=== PATIENT | male | born 1960 | race Hispanic/Latino ===

== ENCOUNTER → 2018-05-05 | Outpatient (CLI) | payer BC | END | disposition home or self-care (01) | LOC: SHCH 13:29 | PROVIDERS: ATTEND Internal Medicine Cardiovascular Disease | DX: I20.9 Angina pectoris, unspecified (principal) | CPT/HCPCS: 93306 ==

== ENCOUNTER 2019-10-17 22:22 | Inpatient (IN) | payer MEDICARE ==
[~2019-10-17] VITALS: Ht 172.7 cm; Wt 96.0 kg
[2019-10-17] MEDS ORDERED: ONDANSETRON HCL 4 MG/2 ML VIAL ONE (22:57)
[2019-10-17] MEDS ORDERED: KETOROLAC TROMETHAMINE 30MG/ML ONE (22:58)
[2019-10-17 22:59] LABS: BASOPHILS % (AUTO) 0.3 % (0.0-5.0); EOSINOPHILS % (AUTO) 0.1 % (0.0-8.0); HEMATOCRIT 54.5 % (42-54); LYMPHOCYTES % (AUTO) 2.8 % (21.0-51.0); MEAN CORPUSCULAR HEMOGLOBIN 28.5 pg (27.0-33.0); MEAN CORPUSCULAR HGB CONC 33.2 g/dL (32.0-36.0); MEAN CORPUSCULAR VOLUME 85.8 fL (79-99); MONOCYTES % (AUTO) 5.3 % (3.0-13.0); NEUTROPHILS % (AUTO) 91.1 % (40.0-77.0); PLATELET COUNT (AUTO) 194 K/uL (130-400); RED BLOOD CELL COUNT(AUTO) 6.35 MIL/uL (4.50-6.20); RED CELL DISTRIBUTION WIDTH 12.8 % (11.0-15.5); WHITE BLOOD COUNT (AUTO) 14.4 K/uL (4.8-10.8)
[2019-10-17 23:05] LABS: APPEARANCE,URINE Clear (CLEAR); BILIRUBIN,URINE Moderate (NEGATIVE); COLOR,URINE Dark Yellow (YELLOW); GLUCOSE, URINE (UA) >=1000 mg/dL (NEGATIVE); KETONES,URINE >=80 mg/dL (NEGATIVE); LEUKOCYTE ESTERASE ,URINE Negative (NEGATIVE); NITRATE,URINE Negative (NEGATIVE); OCCULT BLOOD,URINE Negative (NEGATIVE); PROTEIN,URINE Trace mg/dL (NEGATIVE); UROBILINOGEN,URINE >=8.0 mg/dL (0.2-1.0)
[2019-10-17 23:11] LABS: CREATININE 1.2 mg/dL (0.5-1.5)
[2019-10-17 23:15] LABS: TOTAL PROTEIN, SERUM 7.9 g/dL (6.0-8.3)
[2019-10-17 23:18] LABS: BACTERIA,URINE Few /HPF (None Seen); MUCUS,URINE Moderate LPF (None Seen); RBC,URINE 0-1 /HPF (0-1); RENAL EPITHELIAL CELLS,URINE Moderate /HPF (None Seen); SQUAMOUS EPITHELIAL CELL,UR Moderate /HPF (0-2); WBC,URINE 0-1 /HPF (0-1)
[2019-10-17 23:37] LABS: ALBUMIN 3.1 g/dL (3.5-5.0)
[2019-10-17] MEDS ORDERED: ZOSYN 3.375GM+NS 50ML 50 ML IV ONE (23:37)
[2019-10-17] MEDS ORDERED: MORPHINE SULFATE 4 MG/1ML SYG ONE (23:38)
[2019-10-18] VITALS (19 sets, daily range): BP systolic 87–123; BP diastolic 41–79
[2019-10-18] MEDS ORDERED: DEXTROSE 50%-WATER 50 ML DISP.SYRIN IV PRN (01:00)
[2019-10-18] MEDS ORDERED: GLUCAGON 1MG KIT 1 MG ML IM PRN (01:00)
[2019-10-18] MEDS ORDERED: LISI40TA4 PO (01:13)
[2019-10-18] MEDS ORDERED: DULA1.5P SQ (01:13)
[2019-10-18] MEDS ORDERED: TAMS-1 PO (01:13)
[2019-10-18] MEDS ORDERED: CANA300T PO (01:13)
[2019-10-18] MEDS ORDERED: ATOR20TA65 PO (01:13)
[2019-10-18] MEDS ORDERED: INSU100I13 SQ ×2 (01:13)
[2019-10-18 06:08] LABS: HEMATOCRIT 47.8 % (42-54); MEAN CORPUSCULAR HEMOGLOBIN 29.2 pg (27.0-33.0); MEAN CORPUSCULAR HGB CONC 33.3 g/dL (32.0-36.0); MEAN CORPUSCULAR VOLUME 87.7 fL (79-99); RED BLOOD CELL COUNT(AUTO) 5.45 MIL/uL (4.50-6.20); RED CELL DISTRIBUTION WIDTH 12.9 % (11.0-15.5); WHITE BLOOD COUNT (AUTO) 17.6 K/uL (4.8-10.8)
[2019-10-18 06:26] LABS: ALBUMIN 2.7 g/dL (3.5-5.0); BILIRUBIN,TOTAL 8.7 mg/dL (0.2-1.0); CREATININE 1.7 mg/dL (0.5-1.5); POTASSIUM 4.2 mmol/L (3.5-5.1); TOTAL PROTEIN, SERUM 6.7 g/dL (6.0-8.3)
[2019-10-18] MEDS: INSULIN R PO SS2 SQ SCH ×4 (07:30→21:00)
[2019-10-18] MEDS: MEPERIDINE-PF 50 MG/ML SYG IVP PRN (07:31)
[2019-10-18] MEDS: ONDANSETRON HCL 4 MG/2 ML VIAL IVP PRN ×2 (07:31→15:15)
[2019-10-18] MEDS: PANTOPRAZOLE 40 MG/VIAL IVP SCH (08:48)
--- NOTE | 2019-10-18 08:54 | NUR ---
CONSULT DR. DE LOS SANTOS CONSULTED FOR DX OF OBSTRUCTED JAUNDICE. IMAGING RESULTS REPORTED. WILL VIEW RESULTS AND CALL BACK WITH ANY NEW ORDERS.
[2019-10-18] MEDS ORDERED: LORAZEPAM 2 MG/ML 1 ML VIAL IVP SCH (09:30)
--- NOTE | 2019-10-18 13:05 | NUR ---
INITIAL CALL TO NUMBER LISTED ON FACE SHEET, BELONGS TO SPOUSE, MELANIA. STATES PT IS DISABLED BUT HAS BEEN INDEPENDENT, USES A CANE AT TIMES, DOES NOT DRIVE, HOME SAFE & ACCESSIBLE SPOUSE TAKES TO APPOINTMENTS AT DR. GLASER, FOLLOWS UP FREQUENTLY. DC PLAN IS HOME Addendum: 10/18/19 at 1443 by CHANDA BUTLER RN CM Amended: Links added.
[2019-10-18] MEDS ORDERED: IOHEXOL-350 50ML VIAL IV ONE (13:47)
[2019-10-18] MEDS ORDERED: MIDAZOLAM HCL 1 MG/ML 2ML VIAL ONE ×2 (14:25→14:41)
[2019-10-18] MEDS ORDERED: FENTANYL CITRATE PF 50 MCG/1 ML 2ML VIAL ONE ×2 (14:25→14:41)
[2019-10-18] MEDS ORDERED: PROPOFOL 10 MG/ML 20ML VIAL IV ONE (14:25)
[2019-10-18] MEDS ORDERED: LIDOCAINE HCL 1% 20 ML VIAL ONE (14:26)
[2019-10-18] MEDS ORDERED: INDOMETHACIN 50 MG SUPP.RECT RC SCH (15:00)
--- NOTE | 2019-10-18 15:49 | NUR ---
REPORT RECEIVED FROM ESMER TOLEDO (PACU). PATIENT S/P ERCP UNDER GENERAL ANESTHESIA. ONE STONE, SLUDGE AND PUS FOUND IN THE CBD. DR. DE LOS SANTOS RECOMMENDING SURGERY FOR CHOLECYSTECTOMY. PATIENT STABLE AT THIS TIME.
[2019-10-18] MEDS ORDERED: VANCOMYCIN PROTOCOL PER PHARMACY IV SCH (17:00)
--- NOTE | 2019-10-18 17:35 | NUR ---
DR. DE LOS SANTOS MADE AWARE OF NO SURGEON DIRECTOR CLINICAL RESEARCH FOR TODAY OR TOMORROW. NEW ORDERS FOR HIDA SCAN TODAY AND CALL WITH RESULTS.
[2019-10-18] MEDS ORDERED: COMPOUND IV REFRIGERATED 1 EACH IVSOLN MISC PRN (17:45)
--- NOTE | 2019-10-18 17:45 | NUR ---
DR. GLASER MADE AWARE OF ERCP RESULTS. ORDERED TO START VANCOMYCIN PROTOCOL.
[2019-10-18] MEDS: VANCOMYCIN 1.5 GM in SODIUM CHLORIDE 0.9% 250 ML IV SCH (18:50)
--- NOTE | 2019-10-18 22:12 | NUR ---
HIDA SCAN RESULTS PAGED DR. DE LOS SANTOS'S OFFICE AT THIS TIME, REGARDING HIDA SCAN RESULTS, PENDING CALL BACK
--- NOTE | 2019-10-18 22:40 | NUR ---
DR. DE LOS SANTOS MADE AWARE OF HIDA SCAN RESULTS.
[2019-10-19] VITALS (7 sets, daily range): BP systolic 98–143; BP diastolic 55–83
[2019-10-19] MEDS: SODIUM CHLORIDE 0.9% 1000ML 1,000 ML IV SCH ×2 (00:36→12:18)
--- NOTE | 2019-10-19 02:34 | NUR ---
DR. FILIBERTO WALTER STATED HE WANTS TO BE MADE AWARE OF LAB RESULTS.
[2019-10-19 05:53] LABS: BASOPHILS % (AUTO) 0.4 % (0.0-5.0); LYMPHOCYTES % (AUTO) 10.8 % (21.0-51.0); MEAN CORPUSCULAR HEMOGLOBIN 28.5 pg (27.0-33.0); MEAN CORPUSCULAR HGB CONC 32.4 g/dL (32.0-36.0); MEAN CORPUSCULAR VOLUME 87.7 fL (79-99); MONOCYTES % (AUTO) 9.3 % (3.0-13.0); NEUTROPHILS % (AUTO) 76.3 % (40.0-77.0); PLATELET COUNT (AUTO) 171 K/uL (130-400); RED BLOOD CELL COUNT(AUTO) 5.13 MIL/uL (4.50-6.20); RED CELL DISTRIBUTION WIDTH 13.1 % (11.0-15.5); WHITE BLOOD COUNT (AUTO) 8.4 K/uL (4.8-10.8)
[2019-10-19 06:19] LABS: ALBUMIN 2.3 g/dL (3.5-5.0); CREATININE 1.3 mg/dL (0.5-1.5); TOTAL PROTEIN, SERUM 6.1 g/dL (6.0-8.3)
[2019-10-19] MEDS: INSULIN R PO SS2 SQ SCH ×4 (07:30→21:00)
--- NOTE | 2019-10-19 07:56 | NUR ---
NOTIFIED DR. DE LOS SANTOS REGARDING AM LABS. STATED TO REPEAT LABS IN AM AND START FULL LIQUID DIET FOR LUNCH.
[2019-10-19] MEDS: PANTOPRAZOLE 40 MG/VIAL IVP SCH (09:10)
--- NOTE | 2019-10-19 15:51 | NUR ---
NUTRITION EDUCATION Pt Refusal of Diabetes Nutrition education. Pt denies need for education secondary to previous attendance of Diabetes classes. MITESH offered reference materials and Pt declined. MITESH encouraged Pt to notify as questions arise. Addendum: 10/19/19 at [address] Amended: Links added.
--- NOTE | 2019-10-19 16:03 | NUR ---
RD NOTIFICATION Pt admitted with Obstructed Jaundice, Abdominal pain. Upon visit, Pt reports he is hungry but still having abdominal pain and pending possible procedure. Pt with Clear Liquid Diet order in place. Recommend advance diet as tolerated to Heart healthy, 6 small meals, when medically feasible. Recommend 60mL promod BID. RD to continue to monitor. Please notify as additional nutrition concerns arise. Thank you. Addendum: 10/19/19 at [address] Amended: Links added.
[2019-10-19] MEDS: VANCOMYCIN 1.5 GM in SODIUM CHLORIDE 0.9% 250 ML IV SCH (18:00)
[2019-10-19] MEDS: MEPERIDINE-PF 50 MG/ML SYG IVP PRN (20:15)
[2019-10-19] MEDS: ONDANSETRON HCL 4 MG/2 ML VIAL IVP PRN (20:15)
--- NOTE | 2019-10-19 20:30 | NUR ---
HIGH WIRE ARTIST PAGED, DR GLASER AWARE PT STATES HAS NOT HAD A BM IN 7 DAYS CPOE ORDERS GIVEN
[2019-10-19] MEDS ORDERED: POTASSIUM CHLORIDE 20MEQ/100ML 100 ML IV PRN (21:15)
[2019-10-19] MEDS ORDERED: LIDOCAINE HCL-MPF 1% 2ML VIAL IJ PRN (21:15)
[2019-10-19] MEDS: ZOLPIDEM TARTRATE 5 MG TAB PO PRN (22:46)
[2019-10-20] MEDS: SODIUM CHLORIDE 0.9% 1000ML 1,000 ML IV SCH ×3 (00:04→23:36)
[2019-10-20] MEDS: LACTULOSE 20 GM/30 ML UDCUP PO PRN ×2 (03:19→11:38)
[2019-10-20 03:50] VITALS: BP 143/78
[2019-10-20 04:38] LABS: BASOPHILS % (AUTO) 0.8 % (0.0-5.0); EOSINOPHILS % (AUTO) 3.9 % (0.0-8.0); HEMATOCRIT 47.1 % (42-54); LYMPHOCYTES % (AUTO) 13.3 % (21.0-51.0); MEAN CORPUSCULAR HEMOGLOBIN 27.8 pg (27.0-33.0); MEAN CORPUSCULAR HGB CONC 31.6 g/dL (32.0-36.0); MEAN CORPUSCULAR VOLUME 87.9 fL (79-99); MONOCYTES % (AUTO) 10.6 % (3.0-13.0); PLATELET COUNT (AUTO) 198 K/uL (130-400); RED BLOOD CELL COUNT(AUTO) 5.36 MIL/uL (4.50-6.20); RED CELL DISTRIBUTION WIDTH 13.1 % (11.0-15.5); WHITE BLOOD COUNT (AUTO) 7.1 K/uL (4.8-10.8)
[2019-10-20 04:49] LABS: ALBUMIN 2.3 g/dL (3.5-5.0); BILIRUBIN,TOTAL 6.1 mg/dL (0.2-1.0); CREATININE 1.2 mg/dL (0.5-1.5); POTASSIUM 3.8 mmol/L (3.5-5.1); TOTAL PROTEIN, SERUM 6.4 g/dL (6.0-8.3)
[2019-10-20] MEDS: INSULIN R PO SS2 SQ SCH ×4 (07:22→21:00)
[2019-10-20 08:05] VITALS: BP 136/78
[2019-10-20] MEDS: PANTOPRAZOLE 40 MG/VIAL IVP SCH (08:23)
[2019-10-20] MEDS: MEPERIDINE-PF 50 MG/ML SYG IVP PRN ×3 (08:26→21:19)
--- NOTE | 2019-10-20 09:37 | NUR ---
DR JAYESH BAIG REGARDING CONSULT. STATED HE WILL SEE PATIENT
[2019-10-20 11:42] VITALS: BP 153/80
[2019-10-20] MEDS: ZOSYN 3.375GM+NS 50ML 50 ML IV SCH ×2 (13:11→21:17)
[2019-10-20 16:54] VITALS: BP 162/61
--- NOTE | 2019-10-20 17:00 | NUR ---
Leila ANNA PA TO SEE PT EXPRESSED TO PT THAT HE WOULD DISCUSS SITUATION WITH DR MCCONNELL AND WOULD LIKE TO MONITOR PATIENT MORE. IF PT SHOULD HAVE LAP CHOLE0 IT WOULD LIKELY BE ON FRIDAY BUT NO ORDERS YET. PT VERBALIZED UNDERSTANDING. Leila MARTINES SUGGESTED PT CAN EAT REGULAR DIET NOW. THIS NURSE INFORMED PA THAT DR DE LOS SANTOS STATED TO KEEP PT ON FULL LIQUID. PT BECAME UPSET STATING "WHY IS A DOCTOR WHO HASNT SEEN ME TELLING ME WHAT I CAN OR CANT DO? FORGET IT, I DONT WANT . I DONT WANT YOUR FOOD" THIS NURSE AND PA ATTEMPT TO CALM PATIENT DOWN BUT HE BECAME INCREASINGLY UPSET.
--- NOTE | 2019-10-20 17:15 | NUR ---
DINNER TRAY DIET CHANGED PER Leila ANNA ORDER FOR CC DIET-TRAY RECEIVED. THIS NURSE PERSONALLY ATTEMPTED TO DELIVER TRAY TO PATIENT TO WHICH HE YELLED "I ALREADY TOLD YOU I DONT WANT THAT SHIT. GET IT OUT OF HERE. I TOLD YOU TWICE." THIS NRUSE REMOVED TRAY.
--- NOTE | 2019-10-20 17:30 | NUR ---
WALLET PT CLAIMING WALLET HAS BEEN STOLEN. STATED HE JUST REMEMBERED THAT HE CANT FIND HIS WALLET AFTER SHOWER THIS AM. PT IS ACCUSING ZIGZAGGER/ENVIRONMENTAL AIDE OF STEALING WALLET STATING "I DONT KNOW IF IT WAS NOÉ THE GIRL BECAUSE SHE PROBABLY NEEDED MONEY, ALL SHE HAD TO DO WAS TAKE THE MONEY NOT THE WALLET". DELMY LYMAN AND SECURITY NOTIFIED. THIS NURSE ATTEMPTED TO LOOK IN ROOM WITH BSS SOLUTION ARCHITECT PRSENT TO WHICH PT BEGAN GETTING AGITATED STATING "SEE THIS IS WHAT PISSES ME OFF. WHEN PEOPLE DONT BELIEVE ME AND KEEP ASKING QUESTIONS". THIS NURSE EXITED ROOM.
--- NOTE | 2019-10-20 17:30 | NUR ---
RECEIVED A CLAIM FROM PATIENT ABOUT A MISSING WALLET. PATIENT CLAIMED THAT HIS WALLET WAS ON THE BED NEXT TO HIS PHONE, THEN HE TOOK A SHOWER (AROUND [phone]). NOÉ GOODEN CHANGE THE LINEN. PATIENT REPORTED MISSING WALLET AT 1730. I CALLED HOUSE KEEPING AND THEY INFORMED ME THAT THE [employer] PICKED UP ALL DIRTY LINEN FOR TODAY. HOUSE KEEPING SEND AN EMAIL TO THE [employer] WITH THE WALLET DESCRIPTION SO THEY CALL LOOK FOR IT. I INFORMED PT OF THIS HOWEVER, PT WAS VERY DEMANDING AND ABUSIVE TOWARDS ME AND NOÉ GOODEN. I TOLD HIM THAT WE WERE TRYING TO HELP HIM BUT HE CONTINUED USING ABUSIVE LANGUAGE SO WE DECIDED TO EXIT THE ROOM.
[2019-10-20 20:31] VITALS: BP 138/80
[2019-10-20] MEDS: ZOLPIDEM TARTRATE 5 MG TAB PO PRN (21:18)
[2019-10-20 23:41] VITALS: BP 147/79
[2019-10-21 03:38] VITALS: BP 126/72
[2019-10-21 03:52] LABS: HEMATOCRIT 44.6 % (42-54); MEAN CORPUSCULAR HEMOGLOBIN 28.6 pg (27.0-33.0); MEAN CORPUSCULAR HGB CONC 32.7 g/dL (32.0-36.0); MEAN CORPUSCULAR VOLUME 87.3 fL (79-99); RED BLOOD CELL COUNT(AUTO) 5.11 MIL/uL (4.50-6.20); RED CELL DISTRIBUTION WIDTH 12.9 % (11.0-15.5); WHITE BLOOD COUNT (AUTO) 6.7 K/uL (4.8-10.8)
[2019-10-21 04:16] LABS: ALBUMIN 2.2 g/dL (3.5-5.0); BILIRUBIN,DIRECT 3.9 mg/dL (0.0-0.3); BILIRUBIN,TOTAL 4.5 mg/dL (0.2-1.0); POTASSIUM 3.8 mmol/L (3.5-5.1)
[2019-10-21] MEDS: ZOSYN 3.375GM+NS 50ML 50 ML IV SCH ×3 (05:14→21:10)
[2019-10-21] MEDS: INSULIN R PO SS2 SQ SCH ×4 (06:37→21:00)
[2019-10-21 08:04] VITALS: BP 144/91
--- NOTE | 2019-10-21 08:30 | NUR ---
PT UPSET, ANGRY OF HIS MISSING WALLET PT STATES WE ARE NOT DOING NOTHING ABOUT IT AND THAT IF HE DOES NOT GET HIS WALLET HE WILL CALL POLICE, PATIENT WAS TOLD THAT WE WILL FOLLOW UP WITH SECURITY. CHARGE NURSE JACOB AND SECURITY LANCE AWARE OF INCIDENT.
[2019-10-21] MEDS: PANTOPRAZOLE 40 MG/VIAL IVP SCH (09:43)
[2019-10-21 11:05] VITALS: BP 161/80
[2019-10-21] MEDS: SODIUM CHLORIDE 0.9% 1000ML 1,000 ML IV SCH ×2 (11:22→21:11)
--- NOTE | 2019-10-21 12:45 | NUR ---
CONRAD ANNA AT BEDSIDE CONRAD ANNA SPOKE WITH PATIENT THAT IT WAS OKAY FOR HIM TO ORDER FOOD BUT NOT TO EAT. CONRAD MR ANNA WILL ASK DR. MCCONNELL ABOUT THE POSSIBILITY OF SURGERY TODAY OR TOMORROW. BUT THAT IT WAS OKAY FOR HIM TO ORDER A TRAY AND THAT HE WILL CALL NURSE TO INFORM HIM IF IT WAS OKAY TO EAT OR NOT. PATIENT HAD TRAY AT BEDSIDE BUT HE FORGOT AND ATE THE TRAY. WALKED IN PT'S ROOM TO REMIND HIM NOT TO EAT PT HAD ALREADY EATEN HIS MEAL. FORTUNATELY CONRAD ANNA CALLED NURSE STATION STATING THAT PT CAN EAT AND THAT HE WILL NOT HAVE SURGERY TODAY. CONRAD ANNA SAID HE WILL CALL BACK FOR PLANS FOR SURGERY FOR POSSIBLY FRIDAY. PT VERY UPSET AND WANTS FOR THE NURSE TO GET DOWN ON KNEES TO APOLOGIZE. BUT REMAINED UPSET BECAUSE APOLOGY WAS NOT DONE KNEELING. SPOKE WITH CHARGE JACOB AND DELMY IF OKAY TO SWITCH ASSIGNMENT BECAUSE OF PATIENT'S BEHAVIOR. ASSIGNMENT WAS SWITCH REPORT GIVEN TO ESMER RUIZ.
[2019-10-21 15:44] VITALS: BP 168/98
--- NOTE | 2019-10-21 16:30 | NUR ---
NOTE SPOKE TO NICA Mathew FOR DR MCCONNELL AND HE TOLD ME TO KEEP PATIENT NPO AFTER MIDNIGHT AND ORDERED LABS FOR AM. CBC AND CMP. HE WILL REVIEW LABS IN AM AND DECIDE WHETHER SURGERY WILL BE DONE TOMORROW. PATIENT WAS MADE AWARE OF THIS.
[2019-10-21 20:11] VITALS: BP 162/87
[2019-10-21] MEDS: ZOLPIDEM TARTRATE 5 MG TAB PO PRN (21:09)
[2019-10-21] MEDS: MEPERIDINE-PF 50 MG/ML SYG IVP PRN (21:22)
[2019-10-22 00:28] VITALS: BP 141/58
[2019-10-22 03:38] LABS: HEMATOCRIT 45.6 % (42-54); MEAN CORPUSCULAR HEMOGLOBIN 28.1 pg (27.0-33.0); MEAN CORPUSCULAR HGB CONC 32.5 g/dL (32.0-36.0); MEAN CORPUSCULAR VOLUME 86.7 fL (79-99); RED BLOOD CELL COUNT(AUTO) 5.26 MIL/uL (4.50-6.20); RED CELL DISTRIBUTION WIDTH 13.3 % (11.0-15.5); WHITE BLOOD COUNT (AUTO) 7.4 K/uL (4.8-10.8)
[2019-10-22 04:09] LABS: ALBUMIN 2.2 g/dL (3.5-5.0); BILIRUBIN,TOTAL 2.8 mg/dL (0.2-1.0); CREATININE 1.1 mg/dL (0.5-1.5); POTASSIUM 3.9 mmol/L (3.5-5.1)
[2019-10-22 04:41] VITALS: BP 159/89
[2019-10-22] MEDS: SODIUM CHLORIDE 0.9% 1000ML 1,000 ML IV SCH ×2 (05:10→20:06)
[2019-10-22] MEDS: ZOSYN 3.375GM+NS 50ML 50 ML IV SCH ×3 (05:10→20:04)
[2019-10-22] MEDS: INSULIN R PO SS2 SQ SCH ×4 (06:42→21:00)
--- NOTE | 2019-10-22 07:25 | NUR ---
PATIENT UPDATE Pt kept npo post mn, for possible surgery today to be decided by Dr. Barlow today on rounds. Medicated once for rlq pain with demerol 50mg iv last night which afforded relief. Continues with the NS at 85 cc/hr. No nausea and vomiting, ambulating freely inside the room, vital signs stable.
[2019-10-22 10:00] VITALS: BP 162/80
--- NOTE | 2019-10-22 10:24 | NUR ---
CALLED DR MCCONNELL REGARDING POSSIBLE SX FOR PT. PER HIS PA NICA ANNA WILL ROUND. PT EXPRESSES FRUSTRATION. CHARGE NURSE SMITH WAS MADE AWARE.
[2019-10-22 11:53] VITALS: BP 154/78
[2019-10-22] MEDS: PANTOPRAZOLE 40 MG/VIAL IVP SCH (12:16)
[2019-10-22 18:21] VITALS: BP 153/84
[2019-10-22 20:00] VITALS: BP 155/77
[2019-10-22] MEDS: ZOLPIDEM TARTRATE 5 MG TAB PO PRN (20:11)
[2019-10-22] MEDS: MEPERIDINE-PF 50 MG/ML SYG IVP PRN (20:13)
[2019-10-23] VITALS (27 sets, daily range): BP systolic 113–175; BP diastolic 69–93
[2019-10-23] MEDS: ZOSYN 3.375GM+NS 50ML 50 ML IV SCH ×3 (05:05→21:13)
[2019-10-23 05:40] LABS: ALBUMIN 2.2 g/dL (3.5-5.0); BILIRUBIN,DIRECT 1.6 mg/dL (0.0-0.3); BILIRUBIN,TOTAL 2.1 mg/dL (0.2-1.0); CREATININE 1.1 mg/dL (0.5-1.5); POTASSIUM 3.4 mmol/L (3.5-5.1); TOTAL PROTEIN, SERUM 5.8 g/dL (6.0-8.3)
[2019-10-23] MEDS: INSULIN R PO SS2 SQ SCH ×4 (07:30→21:00)
[2019-10-23] MEDS: PANTOPRAZOLE 40 MG/VIAL IVP SCH (09:09)
[2019-10-23] MEDS: SODIUM CHLORIDE 0.9% 1000ML 1,000 ML IV SCH ×3 (09:13→21:20)
--- NOTE | 2019-10-23 09:21 | NUR ---
PT WAS PICKED UP BY [facility] FOR SURGERY. BP SLIGHTLY ELEVATED, [facility] WAS MADE AWARE.
[2019-10-23] MEDS ORDERED: LIDOCAINE PF 2% 5ML ABBOJECT ONE (09:43)
[2019-10-23] MEDS ORDERED: FENTANYL CITRATE PF 50 MCG/1 ML 2ML VIAL ONE ×2 (09:44→10:11)
[2019-10-23] MEDS ORDERED: PROPOFOL 10 MG/ML 20ML VIAL IV ONE (09:44)
[2019-10-23] MEDS ORDERED: MIDAZOLAM HCL 1 MG/ML 2ML VIAL ONE (09:44)
[2019-10-23] MEDS ORDERED: ROCURONIUM 10MG/1ML SYR 10 MG/ML ML ONE ×2 (09:44→10:04)
[2019-10-23] MEDS ORDERED: BUPIVACAINE/PF 0.5% 30ML VIAL ONE (10:15)
[2019-10-23] MEDS ORDERED: LABETALOL 20 MG/4 ML DISP.SYRIN IV ONE (10:20)
[2019-10-23] MEDS ORDERED: GLYCOPYRROLATE 1 MG/5 ML SYRINGE ONE (10:28)
[2019-10-23] MEDS ORDERED: ONDANSETRON HCL 4 MG/2 ML VIAL ONE (10:28)
[2019-10-23] MEDS ORDERED: DEXAMETHASONE SOD PHOSPHATE 10MG/ML 1ML VIAL ONE (10:28)
[2019-10-23] MEDS ORDERED: NEOSTIGMINE 5MG/5ML SYR IV ONE (10:28)
[2019-10-23] MEDS ORDERED: MEPERIDINE-PF 25 MG/ML SYG ONE (11:20)
--- NOTE | 2019-10-23 11:55 | NUR ---
PT ARRIVED BACK TO UNIT. PT IS AAO X3, STATES SOME DISCOMFORT AND SLIGHT PAIN TO ABD. VITAL SIGNS STABLE. ASSESSED ABD, BANDAGES INTACT. WILL CONTINUE TO MONITOR. CALL LIGHT IN REACH.
[2019-10-23] MEDS: MEPERIDINE-PF 50 MG/ML SYG IVP PRN ×2 (16:42→21:33)
[2019-10-23 19:49] LABS: ALBUMIN 2.4 g/dL (3.5-5.0); BILIRUBIN,TOTAL 1.9 mg/dL (0.2-1.0); TOTAL PROTEIN, SERUM 6.6 g/dL (6.0-8.3)
--- NOTE | 2019-10-23 21:04 | NUR ---
MD CALL 1944 PATIENT REPORTS TO [facility] NURSE DYLAN AND I THAT HE WAS TOLD BY DR. GLASER TO TELL NURSE TO CONTACT HIM THIS EVENING TO GET ORDERS TO DISCHARGE HOME TONIGHT. DYLAN EXPLAINED TO HIM THAT WE WILL DO SO, BUT THAT THERE ARE NO ORDERS FROM THE SURGEON FOR HIM TO BE DISCHARGED AND WE NEED TO GET THE APPROVAL FROM BOTH PHYSICIANS. HE DOES NOT ACCEPT THIS AN CONTINUES INSISTING THAT DR. GLASER TOLD HIM HE WOULD GO TONIGHT. DYLAN SAY SHE WILL PLACE A PAGE AND WE WILL SPEAK TO HIM. 2014 RECEIVED PHONE CALL FROM PATIENT'S . SPOKE WITH HER TO WHAT HAS BEEN DISCUSSED WITH PATIENT AND WHAT WE ARE DOING FOR NOW. WILL UPDATE PATIENT SOON WE SPEAK TO DR GLASER. 2023 PLACED A PAGE VIA ANSWERING SERVICE TO DR. MCCONNELL TO EXPLAIN SITUATION WITH PATIENT. 2039 CONTACTED ANSWERING SERVICE TO PAGE DR. GLASER HE HAS NOT RESPONDED YET TO [facility] NURSE PAGE. [address] GLASER EXPLAINED TO HIM WHAT PATIENT IS TELLING ME. TOLD HIM THAT THERE IS NO ORDERS FROM DR. MCCONNELL THAT PATIENT IS CLEARED FOR DISCHARGE YET. HAVE PUT OUT A PAGE TO HIM TOO, BUT HAVE NOT YET RECEIVED A RETURN CALL. DR. GLASER SAID TO EXPLAIN TO PATIENT THAT SINCE HE HAD SURGERY IT IS UP TO DR. MCCONNELL TO GIVE THE OK FOR HIM TO BE DISCHARGED THAT IS OUT OF HIS HANDS. ASKED HIM TO SPEAK TO PATIENT DIRECTLY BUT HE SAID JUST TO TELL HIM. WENT TO PATIENTS ROOM AND SPENT SEVERAL MINUTES TALKING WITH HIM ABOUT WHAT DR. GLASER SAID AND EXPLAINING TO HIM THE ROUTINES THAT WE FOLLOW IN REGARDS TO ORDERS, FOLLOW UP, DISCHARGE PROCESSES AND CARE AFTER SURGERY INCLUDING MEDICATIONS, ACTIVITY, DIET. INSTRUCTED HIM ON THE IS AND HE WAS ABLE TO DEMONSTRATED USE UP TO 1250ML. ENCOURAGE TO USE WHILE AWAKE EVERY 1-2HRS AND TO ALSO TAKE HOME AND CONTINUE USE TO PREVENT COMPLICATIONS ARISING FROM NOT TAKING DEEP BREATHS DUE TO PAIN ON INCISIONS. HE ACKNOWLEDGED UNDERSTANDING. HE ALSO SAYS THAT HE WILL WAIT FOR THE DOCTORS TO COME, BUT BY 1230 TOMORROW HE IS PLANNING ON LEAVING WHETHER THEY HAVE COME OR NOT. EXPLAINED TO HIM THAT WILL BE HIS CHOICE AND IF WOULD BE AGAINST [facility]. HE WILL ALSO NOT HAVE ANY DISCHARGE INSTRUCTIONS OR PRESCRIPTIONS AVAILABLE WITHOUT THE DOCTORS ORDERS.
--- NOTE | 2019-10-23 22:12 | NUR ---
MD CALL RECEIVED CALL BACK FROM DR. MCCONNELL. EXPLAINED TO HIM ABOUT PATIENT WISHING TO LEAVE EARLIER THIS EVENING HE HAD UNDERSTOOD THAT FROM DR. GLASER'S VISIT. DR. MCCONNELL SAYS TO EXPLAINED TO PATIENT THAT HE DOES NOT THINK ITS A GOOD IDEA FOR HIM TO LEAVE TONIGHT. HIS GALLBLADDER WAS VERY INFLAMED AND HE WANTS HIM TO CONTINUE ON IV ANTIBIOTICS. TOLD MD ALSO ABOUT PATIENT HAVING SAID HE WOULD ANYWAY WITH OR WITHOUT OK FROM SURGEON. MD STATED IF PATIENT CHOOSES TO DO THAT, HE MAY GO AGAINST MEDICAL [facility]VISE. EXPLAINED THE ABOVE TO PATIENT AND SAYS THAT IT DOES MAKES SENSE. HE IS STILL WITH THE IDEA THAT TOMORROW HE WOULD LIKE TO LEAVE BY NOON.
[2019-10-24 00:02] VITALS: BP 137/83
[2019-10-24] MEDS: MEPERIDINE-PF 50 MG/ML SYG IVP PRN (03:46)
[2019-10-24] MEDS: ZOSYN 3.375GM+NS 50ML 50 ML IV SCH (03:47)
[2019-10-24 04:00] VITALS: BP 147/75
[2019-10-24 05:20] LABS: BASOPHILS % (AUTO) 0.6 % (0.0-5.0); EOSINOPHILS % (AUTO) 1.3 % (0.0-8.0); HEMATOCRIT 44.3 % (42-54); LYMPHOCYTES % (AUTO) 19.7 % (21.0-51.0); MEAN CORPUSCULAR HEMOGLOBIN 28.3 pg (27.0-33.0); MEAN CORPUSCULAR HGB CONC 32.3 g/dL (32.0-36.0); MEAN CORPUSCULAR VOLUME 87.5 fL (79-99); MONOCYTES % (AUTO) 8.4 % (3.0-13.0); NEUTROPHILS % (AUTO) 68.9 % (40.0-77.0); PLATELET COUNT (AUTO) 228 K/uL (130-400); RED BLOOD CELL COUNT(AUTO) 5.06 MIL/uL (4.50-6.20); RED CELL DISTRIBUTION WIDTH 13.4 % (11.0-15.5); WHITE BLOOD COUNT (AUTO) 9.1 K/uL (4.8-10.8)
[2019-10-24] MEDS: INSULIN R PO SS2 SQ SCH (05:55)
[2019-10-24 08:00] VITALS: BP 160/81
[2019-10-24] MEDS ORDERED: PANTOPRAZOLE SODIUM 40 MG TABLET.DR PO SCH (08:14)
[2019-10-24 11:58] VITALS: BP 149/74
--- NOTE | 2019-10-24 13:20 | NUR ---
DISCHARGED USING TEACH BACK. VERBALIZED UNDERSTANDING OF ALL INST. GIVEN. RX. IN HAND FOR PAIN AND STOOL SOFTENER. WILL CALL IN AM TO [facility]. HIS FOLLOW UP APPT. BAND AIDS TO SM SURG WOUNDS TO ABD CHANGED.
== END 2019-10-24 13:49 | disposition home or self-care (01) | DRG 418 ==
LOC: EDH 22:22 → EDHIP 23:48 → 3AH 10-18 00:24
PROVIDERS: ADMIT Family Medicine; ATTEND Family Medicine
PROC: 0FC98ZZ Extirpation of Matter from Common Bile Duct, Via Natural or Artificial Opening Endoscopic (ICD-10-PCS; 2019-10-23)
PROC: 0F798ZZ Dilation of Common Bile Duct, Via Natural or Artificial Opening Endoscopic (ICD-10-PCS; 2019-10-23)
PROC: BF101ZZ Fluoroscopy of Bile Ducts using Low Osmolar Contrast (ICD-10-PCS; 2019-10-23)
PROC: 0FT44ZZ Resection of Gallbladder, Percutaneous Endoscopic Approach (ICD-10-PCS; principal; 2019-10-23 09:45)
DX: K80.63 Calculus of gallbladder and bile duct with acute cholecystitis with obstruction (principal); K83.09 Other cholangitis; E87.1 Hypo-osmolality and hyponatremia; E11.9 Type 2 diabetes mellitus without complications; I10 Essential (primary) hypertension; E78.5 Hyperlipidemia, unspecified; K82.8 Other specified diseases of gallbladder
CPT/HCPCS: 36415; 43262; 43264; 74176; 74181; 74328; 74330; 76705; 78226; 80048; 80053; 80076; 81001; 82948; 83690; 84484; 85025; 85027; 88304; 93005; A4606; A9537; C1769; C1773; C9113; G0378; J1100; J1610; J1815; J1885; J2001; J2060; J2175; J2250; J2270; J2405; J2543; J2704; J2710; J3010; J3370; J3490; J7030; J7050; Q9967